=== PATIENT | female | born 1960 | race African-American/Black ===

== ENCOUNTER 2017-06-23 05:23 | Day surgery (SDC) | payer OTHER ==
--- NOTE | 2017-06-22 20:51 | HP ---
Date/Time of Note Date/Time of Note DATE: 06/22/17 TIME: 20:39 Assessment/Plan VTE Prophylaxis VTE Prophylaxis Intervention: ambulation Lines/Catheters IV C[facility]ter Type (from [facility] Peripheral IV Assessment/Plan Chief Complaint/Hosp Course Postmenopausal bleeding. Uterine polyp. Problems: Assessment/Plan Hysteroscopy with D and C, possible resection of polyp. HPI/ROS Admit Date/Time Admit Date/Time June 23, 2017 Hx of Present Illness 57 y.o. postmenopausal x 4 years who had some postmenopausal bleeding and postcoital bleeding. She had an endometrial biopsy at the [facility] that was benign. On ultrasound however the uterine lining was thickened and it appeared as though there was a polyp present and a hysteroscopy with D and C was recommended. ROS Constitutional: no complaints ENT: no complaints Cardiovascular: no complaints Gastrointestinal: no complaints Neurologic: no complaints Psychological: no complaints PMH/Family/Social Past Medical History POBHx: x 2. PMHx: prediabetic. Asthma. Hypercholestrolemia. Facet syndrome. PSHx: left breast B9 lumpectomy. Lower jaw surgery. Right shoulder surgery. D and C for menorrhagia 20 years ago. All: Codeine. Erythromycin. Iodine. TCN. Social History Alcohol Use: occasionally Smoking Status: Never smoker Drug Use: none Exam/Review of Systems Vital Signs Vitals 5'5" 130# Exam Constitutional: alert, oriented, well developed Head: normocephalic Neck: non-tender, supple Respiratory: clear to auscultation, normal air movement Cardiovascular: nl pulses, regular rate and rhythm Gastrointestinal: nl liver, spleen, non-tender, soft Genitourinary - Female: nl adnexae, nl external genitalia Musculoskeletal: nl extremities to inspection, nl gait and stance Neurological: TESTING TECH II-XII intact ANTHONY HAHN MD Jun 22, 2017 20:49
[2017-06-23] VITALS (13 sets, daily range): BP systolic 93–137; BP diastolic 57–89; PULSE 52–104; RESP 11–24; Ht 165.1 cm; Wt 61.0 kg
[~2017-06-23] VITALS: Ht 165.1 cm; Wt 61.0 kg
[~2017-06-23 05:23] MED LIST: LACTATED RINGER'S 1,000 ML IV SCH
[2017-06-23] MEDS ORDERED: CEFAZOLIN 1 GM INJ ONE (07:00)
[2017-06-23] MEDS ORDERED: PROPOFOL 100 ML ONE (07:40)
[2017-06-23] MEDS ORDERED: FENTAnyl 50 MCG/ML VIAL ONE (07:42)
[2017-06-23] MEDS ORDERED: MIDAZOLAM 1 MG/ML 2 ML INJ ONE (07:42)
[2017-06-23] MEDS ORDERED: LIDOCAINE 2% (SDV) 5 ML INJ ONE (08:37)
[2017-06-23] MEDS ORDERED: KETOROLAC 30 MG INJ ONE (08:37)
[2017-06-23] MEDS ORDERED: FENTAnyl 50 MCG/ML VIAL IV PRN ×3 (09:00)
[2017-06-23] MEDS ORDERED: HYDROmorphONE (0.2 MG/ML) 10ML SYG IV PRN ×2 (09:00)
[2017-06-23] MEDS ORDERED: KETOROLAC 30 MG INJ IV PRN (09:00)
[2017-06-23] MEDS ORDERED: DIPHENHYDRAMINE 50 MG INJ IV PRN (09:00)
[2017-06-23] MEDS ORDERED: OXYCODONE/ACETAMINOPHEN (5/325) TAB PO PRN ×2 (09:00)
[2017-06-23] MEDS ORDERED: EPHEDrine SULFATE 50 MG/5 ML SYG IV PRN (09:00)
[2017-06-23] MEDS ORDERED: hydrALAzine 20 MG INJ IV PRN (09:00)
[2017-06-23] MEDS ORDERED: LABETALOL HCL 20MG INJ IV PRN (09:00)
[2017-06-23] MEDS ORDERED: MEPERIDINE 25 MG INJ IV PRN (09:00)
--- NOTE | 2017-06-23 09:01 | PD.PPDC ---
ELECTRICAL ENGINEERING TECHNOLOGIST Discharge Instruction Condition Patient Condition: Good Diet Diet: Resume Regular Diet Activity/Restrictions Activity: Normal Activity May Shower Restrictions: No Sexual Activity Nothing in the Vagina No Wink No Tampons, douche Wound/Drain Care Instructions Wound/Drain Care Instructions: Keep clean and dry Follow-up Follow-up with Physician: 2, Week/Weeks Provider Information: Doctor will call with pathology results. Return to clinic for DEPARTMENT EDITOR Instructions: Fever greater than 101 Chills Worsening abdominal pain Excessive Vaginal Bleeding ANTHONY HAHN MD Jun 23, 2017 09:01
--- NOTE | 2017-06-23 09:32 | OPR ---
Date/Time of Note Date/Time of Note DATE: 06/23/17 TIME: 09:17 Operative Report Procedure Date: Jun 23, 2017 Preoperative Diagnosis Postmenopausal bleeding, postcoital bleeding, endometrial thickening. Postoperative Diagnosis Same. Operation Performed Hysteroscopy with resection of fundal lesion and hysteroscopic endometrial curretage. Surgeon: ANTHONY HAHN MD Anesthesia Type: general Anesthesiologist: NIGHAT BOO Estimated Blood Loss: none Transfusion Required: no Specimens Endometrial curretings Complications: no Pt Condition Post Procedure: stable Disposition: PACU Procedure Description Pt was brought to the OR and placed on the table and placed under general anesthesia. Her legs were brought into Dilan stirrups and her perineum and vagina were washed with copious sterile saline due to an allergy to iodine. A weighted speculum was placed and the cervix was grasped with a tenaculum. The hysteroscope was primed and the cervix was easily dilated and the scope was placed easily. The cavity was easily visualized as well as the 2 tubal ostia. There was only one lesion at the fundus with a broad base. The Humberto-Clear resection oscillating blade was introduced into the cavity via the scope and the lesion was easily removed. Then proceeded to do a hysteroscopic curettage of the whole cavity with the same blade. Also removed a polyp in the endometrial canal. The procedure was then terminated. There was no fluid loss. The speculum was removed, the patient's legs were brought back to the full supine position, and she was awakened from anesthesia and transported to the recovery room in excellent condition having tolerated the procedure well. ANTHONY HAHN MD Jun 23, 2017 09:32
== END 2017-06-23 11:05 | disposition home or self-care (01) ==
LOC: SDS 05:23
PROVIDERS: ATTEND Obstetrics & Gynecology
DX: N95.0 Postmenopausal bleeding (principal); J45.909 Unspecified asthma, uncomplicated
CPT/HCPCS: 58558; 82962; J0690; J1885; J2250; J3010

== ENCOUNTER 2018-07-27 19:24 | Emergency (ER) | END 2018-07-27 22:30 | disposition home or self-care (01) ==